=== PATIENT | male | born 1940 | race Caucasian/White ===

== ENCOUNTER 2020-06-15 10:13 | Inpatient (IN) ==
[2020-06-15] MEDS ORDERED: SODIUM CHLORIDE 0.9% 1,000 ML IV STA (10:32)
[2020-06-15] MEDS ORDERED: ONDANSETRON 4 MG/2 ML VIAL IV STA (10:34)
[2020-06-15 11:04] LABS: Basophils % 0.2 % (0.0-0.8); Hematocrit 45.8 VOL% (42.0-52.0); Hemoglobin 15.7 GM/DL (14.0-18.0); Immature Granulocytes % 0.3 %; Immature Granulocytes Absolute 0.03 #; Lymphocytes # 0.3 10*3/uL (1.4-4.0); Lymphocytes % 3.4 % (21.2-54.2); Mean Corpuscular HGB Conc 34.3 GM/DL (32-36); Mean Corpuscular Volume 92.2 FL (87-102); Mean Platelet Volume 10.5 FL (9.6-12.0); Neutrophils % 90.1 % (38.7-73.9); Platelet Count 136 T/CUMM (130-400); Red Blood Count 4.97 MC/CUMM (3.8-5.5)
[2020-06-15 11:23] LABS: Albumin 3.8 G/DL (3.4-5.0); Bilirubin,Total 0.5 MG/DL (0.2-1.0); Calcium 9.6 MG/DL (8.5-10.1); Osmolality,Calculated 271.2 MOS/KG (273-304); Total Protein 6.9 G/DL (6.4-8.3)
[2020-06-15 11:32] LABS: Band Neutrophils 3 % (0-10); Eosinophils 1 % (0-10); Lymphocytes 9 % (20-55); Segmented Neutrophils 81 % (50-85); Total Cells Counted 100
[2020-06-15 11:33] LABS: Platelet Estimate Adequate
[2020-06-15] MEDS ORDERED: HYDROmorphone 2 MG/1 ML VIAL IV ONE (12:28)
[2020-06-15] MEDS ORDERED: HYDROmorphone 2 MG/1 ML VIAL ONE (12:29)
[2020-06-15] MEDS ORDERED: ALBUTEROL/IPRATROPIUM 3 ML NEB RESP TX PRN (13:13)
[2020-06-15] MEDS ORDERED: KETOROLAC 15 MG/1 ML VIAL IV PRN (13:13)
[2020-06-15] MEDS ORDERED: ACETAMINOPHEN 325 MG TABLET PO PRN (13:13)
[2020-06-15] MEDS: ONDANSETRON 4 MG/2 ML VIAL IV PRN ×2 (16:29→22:34)
[2020-06-15] MEDS: LACTATED RINGERS 1,000 ML IV SCH (16:42)
[2020-06-15] MEDS: MORPHINE 4 MG/1 ML VIAL IV PRN ×2 (17:39→22:37)
[2020-06-16] MEDS: LACTATED RINGERS 1,000 ML IV SCH ×2 (01:45→09:24)
[2020-06-16 06:03] LABS: Basophils % 0.4 % (0.0-0.8); Eosinophils % 0.2 % (0.00-10.9); Hematocrit 53.7 VOL% (42.0-52.0); Immature Granulocytes % 0.2 %; Immature Granulocytes Absolute 0.01 #; Lymphocytes # 0.6 10*3/uL (1.4-4.0); Lymphocytes % 12.5 % (21.2-54.2); Mean Corpuscular HGB Conc 34.3 GM/DL (32-36); Mean Corpuscular Volume 92.1 FL (87-102); Mean Platelet Volume 11.4 FL (9.6-12.0); Monocytes % 14.4 % (1.7-12.7); Neutrophils % 72.3 % (38.7-73.9); Platelet Count 136 T/CUMM (130-400); Red Blood Count 5.83 MC/CUMM (3.8-5.5); Red Cell Distribution Width 14.2 % (9.3-17.3); White Blood Count 4.8 T/CUMM (4-12)
[2020-06-16 06:11] LABS: Hemoglobin 18.4 GM/DL (14.0-18.0)
[2020-06-16 06:24] LABS: Calcium 10.2 MG/DL (8.5-10.1); Osmolality,Calculated 279.8 MOS/KG (273-304)
[2020-06-16 06:34] LABS: Platelet Estimate Adequate
[2020-06-16] MEDS ORDERED: LACTATED RINGERS 1,000 ML IV ONE ×3 (06:53→12:30)
[2020-06-16] MEDS: ENOXAPARIN 40 MG/0.4 ML SYRINGE SUBCUT SCH (07:37)
[2020-06-16] MEDS: ONDANSETRON 4 MG/2 ML VIAL IV PRN ×2 (08:27→13:44)
[2020-06-16] MEDS: MORPHINE 4 MG/1 ML VIAL IV PRN ×2 (08:29→13:44)
[2020-06-16] MEDS: PANTOPRAZOLE 40 MG VIAL IV SCH (09:26)
[2020-06-16 15:09] LABS: Bilirubin,Urine Negative (Negative); Blood, Urine Negative (Negative); Glucose,Urine (UA) Negative (Negative); Ketones,Urine Negative (Negative); Mucus,Urine Occasional /LPF (Occasional); Nitrite,Urine Negative (Negative); Protein,Urine Negative; RBC,Urine 4 /HPF (0-4); Squamous Epithelial Cell,Urine Occasional /HPF (0-10); Urine Appearance CLEAR (Clear); Urine Color Amber (Yellow); Urine Specific Gravity 1.054 (1.001-1.035); Urine Urobilinogen < 2.0 EU/DL (0.2-1.0); WBC,Urine 3 /HPF (0-6)
[2020-06-17] MEDS: MORPHINE 4 MG/1 ML VIAL IV PRN ×3 (02:35→16:24)
[2020-06-17] MEDS: LACTATED RINGERS 1,000 ML IV SCH ×5 (03:35→23:41)
[2020-06-17] MEDS: ENOXAPARIN 40 MG/0.4 ML SYRINGE SUBCUT SCH (07:27)
[2020-06-17 08:16] LABS: Basophils % 0.5 % (0.0-0.8); Hematocrit 49.5 VOL% (42.0-52.0); Hemoglobin 17.4 GM/DL (14.0-18.0); Immature Granulocytes % 0.7 %; Immature Granulocytes Absolute 0.04 #; Lymphocytes # 0.5 10*3/uL (1.4-4.0); Lymphocytes % 8.3 % (21.2-54.2); Mean Corpuscular HGB Conc 35.2 GM/DL (32-36); Mean Corpuscular Volume 90.2 FL (87-102); Mean Platelet Volume 11.6 FL (9.6-12.0); Monocytes % 12.3 % (1.7-12.7); Neutrophils % 78.2 % (38.7-73.9); Platelet Count 118 T/CUMM (130-400); Red Blood Count 5.49 MC/CUMM (3.8-5.5); Red Cell Distribution Width 14.3 % (9.3-17.3); White Blood Count 6.1 T/CUMM (4-12)
[2020-06-17 08:40] LABS: Calcium 9.3 MG/DL (8.5-10.1)
[2020-06-17 09:06] LABS: Band Neutrophils 9 % (0-10); Hypochromasia 1+; Lymphocytes 14 % (20-55); Metamyelocytes 3 %; Microcytosis Slight; Myelocytes 3 %; Segmented Neutrophils 59 % (50-85); Total Cells Counted 100
[2020-06-17 09:07] LABS: Platelet Estimate Decreased
[2020-06-17] MEDS ORDERED: DEXTROSE 50% 25 GM/50 ML VIAL IV ONE (10:18)
[2020-06-17] MEDS: DEXTROSE 50% 25 GM/50 ML VIAL IV PRN ×2 (10:43→23:26)
[2020-06-17] MEDS ORDERED: cefOXitin 2,000 MG in SYRINGE 1 EACH IV ONE (11:17)
[2020-06-17] MEDS ORDERED: HEPARIN/NACL 0.9% 2 UNITS/ML 500 ML IV ONE ×2 (11:24→12:58)
[2020-06-17] MEDS ORDERED: LACTATED RINGERS 500 ML IV ONE (11:55)
[2020-06-17] MEDS: PANTOPRAZOLE 40 MG VIAL IV SCH (11:55)
[2020-06-17] MEDS ORDERED: DIGOXIN 0.5 MG/2 ML AMP IV ONE ×2 (12:00→18:00)
[2020-06-17] MEDS ORDERED: DILTIAZEM 25 MG/5 ML VIAL IV ONE (12:00)
[2020-06-17] MEDS ORDERED: PHENYLEPHRINE DRIP 40 MG/250 ML PREMIX IV ONE (12:56)
[2020-06-17] MEDS ORDERED: ALBUMIN 5% 12.5 GM/250 ML VIAL IV ONE (12:58)
[2020-06-17] MEDS ORDERED: EPINEPHrine 1 MG/10 ML SYRINGE ONE (12:58)
[2020-06-17] MEDS ORDERED: PHENYLEPHRINE DRIP 20 MG/250 ML PREMIX IV ONE (12:58)
[2020-06-17] MEDS ORDERED: LIDOCAINE 2% 5 ML VIAL ONE (12:58)
[2020-06-17] MEDS ORDERED: propofoL 200 MG/20 ML VIAL IV ONE (12:58)
[2020-06-17] MEDS ORDERED: fentaNYL 100 MCG/2 ML VIAL ONE (12:59)
[2020-06-17] MEDS ORDERED: MIDAZOLAM 2 MG/2 ML VIAL ONE (12:59)
[2020-06-17] MEDS ORDERED: NOREPINEPHRINE 4 MG/4 ML VIAL IV ONE ×2 (12:59→14:36)
[2020-06-17] MEDS ORDERED: EPINEPHrine 1 MG/ML VIAL ONE (12:59)
[2020-06-17] MEDS ORDERED: ETOMIDATE 40 MG/20 ML VIAL IV ONE (12:59)
[2020-06-17] MEDS ORDERED: SODIUM CHLORIDE 0.9% 250 ML IV ONE (13:00)
[2020-06-17] MEDS ORDERED: PHENYLEPHRINE 1 MG/10 ML SYRINGE IV ONE (13:00)
[2020-06-17] MEDS ORDERED: SUCCINYLCHOLINE 200 MG/10 ML VIAL ONE (13:00)
[2020-06-17] MEDS ORDERED: HYDROmorphone 2 MG/1 ML VIAL IV PRN (13:02)
[2020-06-17] MEDS ORDERED: SODIUM CHLORIDE 0.9% 1,000 ML IV ONE ×2 (13:26→15:45)
[2020-06-17 13:27] LABS: Basophils # 0.1 10*3/uL (0.0-0.2); Basophils % 1.4 % (0.0-0.8); Hematocrit 43.2 VOL% (42.0-52.0); Hemoglobin 14.9 GM/DL (14.0-18.0); Immature Granulocytes % 0.2 %; Immature Granulocytes Absolute 0.01 #; Lymphocytes # 0.4 10*3/uL (1.4-4.0); Lymphocytes % 8.5 % (21.2-54.2); Mean Corpuscular HGB Conc 34.5 GM/DL (32-36); Mean Corpuscular Volume 91.5 FL (87-102); Mean Platelet Volume 11.5 FL (9.6-12.0); Monocytes % 5.7 % (1.7-12.7); Neutrophils % 84.2 % (38.7-73.9); Platelet Count 89 T/CUMM (130-400); Red Blood Count 4.72 MC/CUMM (3.8-5.5); Red Cell Distribution Width 14.3 % (9.3-17.3)
[2020-06-17 13:30] LABS: ABG Base Excess 5.4 MMOL/L (-2.5-2.5); ABG HCO3 29.3 MMOL/L (20-26); ABG Oxygen Saturation 99.9 % (95-100); ABG PCO2 53.2 MM HG (35-48); ABG PH 7.389 (7.35-7.45); ABG TCO2 27.2 MMOL/L (23-27)
[2020-06-17] MEDS ORDERED: GLUCAGON 1 MG VIAL IM PRN (13:30)
[2020-06-17 13:40] LABS: Calcium 8.1 MG/DL (8.5-10.1); Osmolality,Calculated 289.7 MOS/KG (273-304)
[2020-06-17] MEDS ORDERED: MAGNESIUM SULF RIDER 2 GM in PREMIX 1 EACH IV PRN (14:01)
[2020-06-17] MEDS: PIPERACILLIN/TAZOBACTAM 3,375 MG in SODIUM CHLORIDE 0.9% 100 ML IV SCH (14:24)
[2020-06-17] MEDS: PHENYLEPHRINE DRIP 40 MG/250 ML PREMIX IV PRN ×2 (14:32→20:21)
[2020-06-17] MEDS: MIDAZOLAM 100 MG in SODIUM CHLORIDE 0.9% 80 ML IV PRN (15:02)
[2020-06-17 15:11] LABS: Band Neutrophils 27 % (0-10); Lymphocytes 13 % (20-55); Metamyelocytes 1 %; Myelocytes 2 %; Segmented Neutrophils 52 % (50-85); Total Cells Counted 100
[2020-06-17 15:14] LABS: Platelet Estimate Decreased
[2020-06-17] MEDS: ALBUMIN 25% 25 GM in PREMIX 1 EACH IV SCH ×2 (15:42→23:33)
[2020-06-17 16:32] LABS: Alanine Aminotransferase 16 U/L (16-61); Albumin 2.7 G/DL (3.4-5.0); Alkaline Phosphatase 51 U/L (45-117); Aspartate Amino Transferase 24 U/L (0-37); Blood Urea Nitrogen 56 MG/DL (7-18); Calcium 7.9 MG/DL (8.5-10.1); Estimated Glom Filtration Rate 20 ML/MIN; Glucose 87 MG/DL (74-106); Osmolality,Calculated 295.3 MOS/KG (273-304); Total Protein 5.2 G/DL (6.4-8.3)
[2020-06-17] MEDS: INSULIN REGULAR 100 UNIT/ML SUBCUT SCH ×2 (17:27→23:37)
[2020-06-17] MEDS ORDERED: LORazepam 2 MG/1 ML VIAL IV ONE (19:29)
[2020-06-17] MEDS: METOPROLOL TARTRATE 5 MG/5 ML VIAL IV SCH ×3 (20:01→21:06)
[2020-06-17] MEDS ORDERED: METOPROLOL TARTRATE 5 MG/5 ML VIAL IV ONE ×2 (20:56→22:44)
[2020-06-18] MEDS ORDERED: DIGOXIN 0.5 MG/2 ML AMP IV ONE
[2020-06-18] MEDS: PHENYLEPHRINE DRIP 40 MG/250 ML PREMIX IV PRN ×2 (00:53→07:17)
[2020-06-18] MEDS: PIPERACILLIN/TAZOBACTAM 3,375 MG in SODIUM CHLORIDE 0.9% 100 ML IV SCH ×2 (03:19→14:00)
[2020-06-18 04:19] LABS: ABG Base Excess 4.7 MMOL/L (-2.5-2.5); ABG HCO3 28.7 MMOL/L (20-26); ABG Oxygen Saturation 99.5 % (95-100); ABG PCO2 41.6 MM HG (35-48); ABG PH 7.453 (7.35-7.45); ABG TCO2 25.5 MMOL/L (23-27)
[2020-06-18 04:37] LABS: Basophils % 0.6 % (0.0-0.8); Eosinophils % 0.3 % (0.00-10.9); Hematocrit 35.8 VOL% (42.0-52.0); Hemoglobin 12.4 GM/DL (14.0-18.0); Immature Granulocytes % 0.8 %; Immature Granulocytes Absolute 0.05 #; Lymphocytes # 0.4 10*3/uL (1.4-4.0); Lymphocytes % 6.7 % (21.2-54.2); Mean Corpuscular HGB Conc 34.6 GM/DL (32-36); Mean Corpuscular Volume 91.3 FL (87-102); Monocytes % 7.1 % (1.7-12.7); Neutrophils % 84.5 % (38.7-73.9); Platelet Count 73 T/CUMM (130-400); Red Blood Count 3.92 MC/CUMM (3.8-5.5); Red Cell Distribution Width 14.4 % (9.3-17.3); White Blood Count 6.3 T/CUMM (4-12)
[2020-06-18 04:41] LABS: Albumin 2.9 G/DL (3.4-5.0); Bilirubin,Total 1.7 MG/DL (0.2-1.0); Calcium 7.8 MG/DL (8.5-10.1); Osmolality,Calculated 293.1 MOS/KG (273-304); Total Protein 5.1 G/DL (6.4-8.3)
[2020-06-18] MEDS: DEXTROSE 50% 25 GM/50 ML VIAL IV PRN (05:25)
[2020-06-18 06:27] LABS: Band Neutrophils 10 % (0-10); Lymphocytes 7 % (20-55); Platelet Estimate Decreased; Segmented Neutrophils 75 % (50-85); Total Cells Counted 100
[2020-06-18] MEDS: LACTATED RINGERS 1,000 ML IV SCH ×2 (07:02→07:50)
[2020-06-18] MEDS: INSULIN REGULAR 100 UNIT/ML SUBCUT SCH ×4 (07:02→23:36)
[2020-06-18] MEDS ORDERED: POTASSIUM CHLORIDE RIDER 10 MEQ in PREMIX 1 EACH IV PRN (08:08)
[2020-06-18] MEDS ORDERED: ENOXAPARIN 30 MG/0.3 ML SYRINGE SUBCUT SCH (09:00)
[2020-06-18] MEDS ORDERED: ALBUMIN 25% 25 GM in PREMIX 1 EACH IV SCH (09:00)
[2020-06-18] MEDS: ALBUMIN 25% 25 GM in PREMIX 1 EACH IV SCH (09:14)
[2020-06-18] MEDS: PANTOPRAZOLE 40 MG VIAL IV SCH (09:18)
[2020-06-18] MEDS: NICOTINE 21 MG/24 HR PATCH TRANSDERM SCH (09:18)
[2020-06-18] MEDS: POTASSIUM CHLORIDE RIDER 20 MEQ in PREMIX 1 EACH IV PRN (09:34)
[2020-06-18] MEDS: MORPHINE 4 MG/1 ML VIAL IV PRN (10:25)
[2020-06-18] MEDS: DEXT 5% NACL 0.45% KCL 20 MEQ 20 MEQ/1,000 ML BAG IV SCH ×2 (11:34→20:49)
[2020-06-18] MEDS: LORazepam 2 MG/1 ML VIAL IV PRN (15:57)
[2020-06-18] MEDS ORDERED: SODIUM CHLORIDE 0.45% 1,000 ML IV ONE (16:10)
[2020-06-19] MEDS: MORPHINE 4 MG/1 ML VIAL IV PRN (00:23)
[2020-06-19] MEDS: PIPERACILLIN/TAZOBACTAM 3,375 MG in SODIUM CHLORIDE 0.9% 100 ML IV SCH ×2 (01:38→16:42)
[2020-06-19] MEDS: fentaNYL INJ 1,250 MCG in SODIUM CHLORIDE 0.9% 225 ML IV PRN (01:41)
[2020-06-19 03:48] LABS: ABG Base Excess 4.4 MMOL/L (-2.5-2.5); ABG HCO3 28.3 MMOL/L (20-26); ABG Oxygen Saturation 98.2 % (95-100); ABG PCO2 45.9 MM HG (35-48); ABG PH 7.416 (7.35-7.45); ABG TCO2 26.9 MMOL/L (23-27)
[2020-06-19] MEDS: DEXT 5% NACL 0.45% KCL 20 MEQ 20 MEQ/1,000 ML BAG IV SCH ×4 (04:04→22:12)
[2020-06-19 04:12] LABS: Basophils % 0.5 % (0.0-0.8); Eosinophils % 0.3 % (0.00-10.9); Hematocrit 29.6 VOL% (42.0-52.0); Hemoglobin 10.1 GM/DL (14.0-18.0); Immature Granulocytes % 0.9 %; Immature Granulocytes Absolute 0.05 #; Lymphocytes # 0.3 10*3/uL (1.4-4.0); Lymphocytes % 5.9 % (21.2-54.2); Mean Corpuscular HGB Conc 34.1 GM/DL (32-36); Mean Corpuscular Volume 93.1 FL (87-102); Mean Platelet Volume 12.1 FL (9.6-12.0); Monocytes % 7.7 % (1.7-12.7); Neutrophils % 84.7 % (38.7-73.9); Platelet Count 44 T/CUMM (130-400); Red Blood Count 3.18 MC/CUMM (3.8-5.5); Red Cell Distribution Width 14.3 % (9.3-17.3); White Blood Count 5.7 T/CUMM (4-12)
[2020-06-19 04:20] LABS: Calcium 7.3 MG/DL (8.5-10.1)
[2020-06-19 04:33] LABS: Osmolality,Calculated 283.5 MOS/KG (273-304)
[2020-06-19] MEDS: POTASSIUM CHLORIDE RIDER 20 MEQ in PREMIX 1 EACH IV PRN (04:44)
[2020-06-19] MEDS: INSULIN REGULAR 100 UNIT/ML SUBCUT SCH ×3 (05:04→18:15)
[2020-06-19 06:48] LABS: Lymphocytes 7 % (20-55); Segmented Neutrophils 88 % (50-85)
[2020-06-19 06:52] LABS: Microcytosis Slight; Platelet Estimate Decreased
[2020-06-19 06:57] LABS: Total Cells Counted 100
[2020-06-19] MEDS: PANTOPRAZOLE 40 MG VIAL IV SCH (09:35)
[2020-06-19] MEDS: NICOTINE 21 MG/24 HR PATCH TRANSDERM SCH (09:35)
[2020-06-19] MEDS ORDERED: SODIUM CHLORIDE 0.9% 1,000 ML IV PRN (11:13)
[2020-06-19] MEDS: FAMOTIDINE 20 MG/2 ML VIAL IV SCH (12:00)
[2020-06-19] MEDS: DEXMEDETOMIDINE 200 MCG in SODIUM CHLORIDE 0.9% 48 ML IV PRN (12:01)
[2020-06-19] MEDS ORDERED: TRACE ELEMENTS (5) 1 ML, MULTIVITAMIN INJ 10 ML in AMINO ACIDS/DEXT/LYTES 5-15% 2,000 ML IV SCH (17:00)
[2020-06-20] MEDS: INSULIN REGULAR 100 UNIT/ML SUBCUT SCH ×4 (01:21→18:29)
[2020-06-20] MEDS: PIPERACILLIN/TAZOBACTAM 3,375 MG in SODIUM CHLORIDE 0.9% 100 ML IV SCH (05:01)
[2020-06-20 05:05] LABS: ABG Base Excess 2.3 MMOL/L (-2.5-2.5); ABG HCO3 26.5 MMOL/L (20-26); ABG Oxygen Saturation 97.2 % (95-100); ABG PCO2 46.5 MM HG (35-48); ABG PH 7.386 (7.35-7.45); ABG PO2 90.9 MM HG (80-95); ABG TCO2 25.2 MMOL/L (23-27)
[2020-06-20 05:07] LABS: Basophils % 0.1 % (0.0-0.8); Eosinophils # 0.1 10*3/uL (0.0-0.87); Eosinophils % 0.9 % (0.00-10.9); Hematocrit 30.8 VOL% (42.0-52.0); Hemoglobin 10.4 GM/DL (14.0-18.0); Immature Granulocytes % 0.3 %; Immature Granulocytes Absolute 0.02 #; Lymphocytes # 0.6 10*3/uL (1.4-4.0); Lymphocytes % 8.7 % (21.2-54.2); Mean Corpuscular HGB Conc 33.8 GM/DL (32-36); Mean Corpuscular Volume 94.2 FL (87-102); Mean Platelet Volume 11.7 FL (9.6-12.0); Red Blood Count 3.27 MC/CUMM (3.8-5.5); Red Cell Distribution Width 14.6 % (9.3-17.3); White Blood Count 6.8 T/CUMM (4-12)
[2020-06-20 05:09] LABS: Platelet Count 68 T/CUMM (130-400)
[2020-06-20 05:25] LABS: Lymphocytes 9 % (20-55)
[2020-06-20 05:27] LABS: Band Neutrophils 8 % (0-10); Eosinophils 1 % (0-10); Nucleated Red Blood Cells 0 (0-5); Platelet Estimate Decreased; Segmented Neutrophils 79 % (50-85); Total Cells Counted 100
[2020-06-20 05:28] LABS: Calcium 7.5 MG/DL (8.5-10.1); Osmolality,Calculated 283.4 MOS/KG (273-304)
[2020-06-20] MEDS: DEXT 5% NACL 0.45% KCL 20 MEQ 20 MEQ/1,000 ML BAG IV SCH ×4 (06:50→23:46)
[2020-06-20] MEDS: PHENYLEPHRINE DRIP 40 MG/250 ML PREMIX IV PRN (07:01)
[2020-06-20] MEDS: NICOTINE 21 MG/24 HR PATCH TRANSDERM SCH (09:40)
[2020-06-20] MEDS: FAMOTIDINE 20 MG/2 ML VIAL IV SCH (11:39)
[2020-06-20] MEDS: MEROPENEM 500 MG in SODIUM CHLORIDE 0.9% 100 ML IV SCH ×3 (11:59→23:43)
[2020-06-20] MEDS ORDERED: ROCURONIUM 100 MG/10 ML VIAL IV ONE (13:49)
[2020-06-20] MEDS ORDERED: SEVOFLURANE 1 UNIT/15 MINUTE INH ONE (13:49)
[2020-06-20] MEDS ORDERED: fentaNYL 100 MCG/2 ML VIAL ONE (13:49)
[2020-06-20] MEDS ORDERED: LACTATED RINGERS 500 ML IV ONE (13:49)
[2020-06-20] MEDS ORDERED: MIDAZOLAM 10 MG/2 ML VIAL ONE (13:49)
[2020-06-20] MEDS ORDERED: DIGOXIN 0.5 MG/2 ML AMP IV ONE ×2 (15:21→16:30)
[2020-06-20] MEDS ORDERED: SODIUM CHLORIDE 0.9% 1,000 ML IV ONE (15:50)
[2020-06-20] MEDS ORDERED: DEXTROSE 10% 1,000 ML IV PRN (17:00)
[2020-06-20] MEDS ORDERED: TRACE ELEMENTS (5) 1 ML, MULTIVITAMIN INJ 10 ML in AMINO ACIDS/DEXT/LYTES 5-15% 2,000 ML IV SCH (17:00)
[2020-06-20] MEDS: fentaNYL INJ 1,250 MCG in SODIUM CHLORIDE 0.9% 225 ML IV PRN (20:00)
[2020-06-21] MEDS: INSULIN REGULAR 100 UNIT/ML SUBCUT SCH ×4 (00:04→17:51)
[2020-06-21] MEDS: MIDAZOLAM 100 MG in SODIUM CHLORIDE 0.9% 80 ML IV PRN (01:35)
[2020-06-21 04:28] LABS: ABG Base Excess 0.5 MMOL/L (-2.5-2.5); ABG HCO3 24.9 MMOL/L (20-26); ABG Oxygen Saturation 98.7 % (95-100); ABG PCO2 40.9 MM HG (35-48); ABG PH 7.399 (7.35-7.45); ABG TCO2 22.8 MMOL/L (23-27)
[2020-06-21 04:52] LABS: Basophils % 0.5 % (0.0-0.8); Eosinophils % 0.3 % (0.00-10.9); Hematocrit 33.1 VOL% (42.0-52.0); Hemoglobin 10.9 GM/DL (14.0-18.0); Immature Granulocytes % 0.6 %; Immature Granulocytes Absolute 0.04 #; Lymphocytes # 0.4 10*3/uL (1.4-4.0); Lymphocytes % 6.6 % (21.2-54.2); Mean Corpuscular HGB Conc 32.9 GM/DL (32-36); Mean Corpuscular Volume 94.3 FL (87-102); Monocytes % 6.6 % (1.7-12.7); Neutrophils % 85.4 % (38.7-73.9); Red Blood Count 3.51 MC/CUMM (3.8-5.5); Red Cell Distribution Width 14.6 % (9.3-17.3); White Blood Count 6.7 T/CUMM (4-12)
[2020-06-21 04:57] LABS: Platelet Count 32 T/CUMM (130-400)
[2020-06-21 05:03] LABS: Calcium 7.1 MG/DL (8.5-10.1); Osmolality,Calculated 278.7 MOS/KG (273-304)
[2020-06-21 05:16] LABS: Band Neutrophils 9 % (0-10); Lymphocytes 7 % (20-55); Platelet Estimate Decreased; Segmented Neutrophils 76 % (50-85); Total Cells Counted 100
[2020-06-21] MEDS: MEROPENEM 500 MG in SODIUM CHLORIDE 0.9% 100 ML IV SCH ×4 (05:42→23:53)
[2020-06-21] MEDS: DEXT 5% NACL 0.45% KCL 20 MEQ 20 MEQ/1,000 ML BAG IV SCH ×2 (07:37→09:18)
[2020-06-21] MEDS: FAMOTIDINE 20 MG/2 ML VIAL IV SCH (10:33)
[2020-06-21] MEDS: NICOTINE 21 MG/24 HR PATCH TRANSDERM SCH (10:33)
[2020-06-21] MEDS ORDERED: FAT EMULSION 20% 250 ML IV SCH (14:00)
[2020-06-21] MEDS ORDERED: SODIUM PHOSPHATE INJ 30 MMOL in SODIUM CHLORIDE 0.9% 250 ML IV ONE (15:00)
[2020-06-21] MEDS ORDERED: MULTIVITAMIN INJ 10 ML in AMINO ACIDS/DEXT/LYTES 5-15% 2,000 ML IV SCH (17:00)
[2020-06-21] MEDS: fentaNYL 25 MCG/HR PATCH TRANSDERM SCH (17:51)
[2020-06-22] MEDS: INSULIN REGULAR 100 UNIT/ML SUBCUT SCH ×4 (00:10→17:13)
[2020-06-22 04:43] LABS: ABG Base Excess 2.7 MMOL/L (-2.5-2.5); ABG HCO3 26.8 MMOL/L (20-26); ABG PCO2 44.5 MM HG (35-48); ABG PH 7.404 (7.35-7.45); ABG TCO2 25.2 MMOL/L (23-27)
[2020-06-22 04:48] LABS: Basophils % 0.2 % (0.0-0.8); Eosinophils % 0.2 % (0.00-10.9); Hemoglobin 10.1 GM/DL (14.0-18.0); Lymphocytes # 0.7 10*3/uL (1.4-4.0); Mean Corpuscular HGB Conc 33.7 GM/DL (32-36); Mean Corpuscular Volume 93.8 FL (87-102); Mean Platelet Volume 12.4 FL (9.6-12.0); Monocytes % 6.7 % (1.7-12.7); Neutrophils % 84.9 % (38.7-73.9); Red Cell Distribution Width 14.7 % (9.3-17.3)
[2020-06-22 04:54] LABS: Platelet Count 34 T/CUMM (130-400)
[2020-06-22 05:08] LABS: Band Neutrophils 2 % (0-10); Hypochromasia 1+; Lymphocytes 3 % (20-55); Platelet Estimate Decreased; Segmented Neutrophils 90 % (50-85); Total Cells Counted 100
[2020-06-22 05:27] LABS: Calcium 7.5 MG/DL (8.5-10.1); Osmolality,Calculated 282.4 MOS/KG (273-304)
[2020-06-22] MEDS: MEROPENEM 500 MG in SODIUM CHLORIDE 0.9% 100 ML IV SCH (05:55)
[2020-06-22] MEDS: NICOTINE 21 MG/24 HR PATCH TRANSDERM SCH (08:53)
[2020-06-22] MEDS: MORPHINE 4 MG/1 ML VIAL IV PRN ×3 (08:55→16:25)
[2020-06-22] MEDS: DEXMEDETOMIDINE 200 MCG in SODIUM CHLORIDE 0.9% 48 ML IV PRN (09:42)
[2020-06-22] MEDS: FAMOTIDINE 20 MG/2 ML VIAL IV SCH (11:44)
[2020-06-23] MEDS: INSULIN REGULAR 100 UNIT/ML SUBCUT SCH ×4 (01:02→18:10)
[2020-06-23] MEDS: MIDAZOLAM 100 MG in SODIUM CHLORIDE 0.9% 80 ML IV PRN ×2 (02:22→19:06)
[2020-06-23 04:25] LABS: ABG Base Excess 3.4 MMOL/L (-2.5-2.5); ABG HCO3 27.2 MMOL/L (20-26); ABG Oxygen Saturation 98.3 % (95-100); ABG PH 7.472 (7.35-7.45); ABG PO2 125.9 MM HG (80-95); ABG TCO2 28.3 MMOL/L (23-27); Allen Test Positive; Pt O2 Delivery Device Ventilator
[2020-06-23 04:38] LABS: Basophils % 0.1 % (0.0-0.8); Eosinophils % 0.4 % (0.00-10.9); Hemoglobin 9.3 GM/DL (14.0-18.0); Immature Granulocytes % 1.2 %; Immature Granulocytes Absolute 0.09 #; Lymphocytes # 0.5 10*3/uL (1.4-4.0); Lymphocytes % 6.5 % (21.2-54.2); Mean Corpuscular HGB Conc 34.4 GM/DL (32-36); Mean Corpuscular Volume 92.5 FL (87-102); Mean Platelet Volume 13.1 FL (9.6-12.0); Monocytes % 6.1 % (1.7-12.7); Neutrophils % 85.7 % (38.7-73.9); Platelet Count 43 T/CUMM (130-400); Red Blood Count 2.92 MC/CUMM (3.8-5.5); Red Cell Distribution Width 14.6 % (9.3-17.3); White Blood Count 7.8 T/CUMM (4-12)
[2020-06-23 04:58] LABS: Calcium 7.4 MG/DL (8.5-10.1); Osmolality,Calculated 283.4 MOS/KG (273-304)
[2020-06-23 05:03] LABS: Eosinophils 1 % (0-10); Hypochromasia 1+; Lymphocytes 3 % (20-55); Platelet Estimate Decreased; Segmented Neutrophils 93 % (50-85); Total Cells Counted 100
[2020-06-23] MEDS ORDERED: PHENYLEPHRINE DRIP 40 MG/250 ML PREMIX IV PRN (08:12)
[2020-06-23] MEDS: LORazepam 2 MG/1 ML VIAL IV PRN (08:15)
[2020-06-23] MEDS ORDERED: MORPHINE 4 MG/1 ML VIAL ONE (08:58)
[2020-06-23] MEDS: methylPREDNISolone SOD SUC 40 MG/1 ML VIAL IV SCH ×2 (09:36→18:10)
[2020-06-23] MEDS: NICOTINE 21 MG/24 HR PATCH TRANSDERM SCH (09:37)
[2020-06-23] MEDS: MORPHINE 4 MG/1 ML VIAL IV PRN ×2 (10:20→16:25)
[2020-06-23] MEDS: ALBUTEROL/IPRATROPIUM 3 ML NEB RESP TX SCH ×4 (10:57→23:42)
[2020-06-23] MEDS ORDERED: MORPHINE 4 MG/1 ML VIAL IV PRN (12:20)
[2020-06-23] MEDS: FAMOTIDINE 20 MG/2 ML VIAL IV SCH (12:25)
[2020-06-23] MEDS: DEXMEDETOMIDINE 200 MCG in SODIUM CHLORIDE 0.9% 48 ML IV PRN (16:12)
[2020-06-24] MEDS: INSULIN REGULAR 100 UNIT/ML SUBCUT SCH ×4 (01:40→18:35)
[2020-06-24] MEDS: ALBUTEROL/IPRATROPIUM 3 ML NEB RESP TX SCH ×6 (03:06→23:48)
[2020-06-24] MEDS: methylPREDNISolone SOD SUC 40 MG/1 ML VIAL IV SCH ×3 (03:17→18:35)
[2020-06-24 04:09] LABS: Basophils % 0.2 % (0.0-0.8); Hematocrit 30.7 VOL% (42.0-52.0); Hemoglobin 10.7 GM/DL (14.0-18.0); Immature Granulocytes % 0.8 %; Immature Granulocytes Absolute 0.07 #; Lymphocytes # 0.6 10*3/uL (1.4-4.0); Lymphocytes % 6.5 % (21.2-54.2); Mean Corpuscular HGB Conc 34.9 GM/DL (32-36); Mean Corpuscular Volume 91.1 FL (87-102); Mean Platelet Volume 13.6 FL (9.6-12.0); Monocytes % 4.5 % (1.7-12.7); Platelet Count 70 T/CUMM (130-400); Red Blood Count 3.37 MC/CUMM (3.8-5.5); Red Cell Distribution Width 14.6 % (9.3-17.3); White Blood Count 8.9 T/CUMM (4-12)
[2020-06-24 04:24] LABS: Calcium 7.6 MG/DL (8.5-10.1); Osmolality,Calculated 286.5 MOS/KG (273-304)
[2020-06-24 04:32] LABS: Allen Test Positive; Pt O2 Delivery Device Ventilator
[2020-06-24 04:33] LABS: ABG Base Excess 3.6 MMOL/L (-2.5-2.5); ABG HCO3 27.6 MMOL/L (20-26); ABG Oxygen Saturation 98.3 % (95-100); ABG PCO2 38.8 MM HG (35-48); ABG TCO2 24.7 MMOL/L (23-27)
[2020-06-24 04:46] LABS: Band Neutrophils 1 % (0-10); Hypochromasia 1+; Lymphocytes 4 % (20-55); Platelet Estimate Decreased; Segmented Neutrophils 91 % (50-85); Total Cells Counted 100
[2020-06-24] MEDS: NICOTINE 21 MG/24 HR PATCH TRANSDERM SCH (09:22)
[2020-06-24] MEDS: fentaNYL 25 MCG/HR PATCH TRANSDERM SCH (09:23)
[2020-06-24] MEDS ORDERED: ENOXAPARIN 40 MG/0.4 ML SYRINGE SUBCUT SCH (09:30)
[2020-06-24] MEDS: ENOXAPARIN 30 MG/0.3 ML SYRINGE SUBCUT SCH (10:04)
[2020-06-24] MEDS: FAMOTIDINE 20 MG/2 ML VIAL IV SCH (13:03)
[2020-06-24] MEDS: hydrALAZINE 20 MG/1 ML VIAL IV PRN (14:00)
[2020-06-24] MEDS: DEXMEDETOMIDINE 200 MCG in SODIUM CHLORIDE 0.9% 48 ML IV PRN (17:23)
[2020-06-25] MEDS: INSULIN REGULAR 100 UNIT/ML SUBCUT SCH ×4 (00:38→18:31)
[2020-06-25] MEDS: methylPREDNISolone SOD SUC 40 MG/1 ML VIAL IV SCH ×3 (01:13→18:31)
[2020-06-25] MEDS: ALBUTEROL/IPRATROPIUM 3 ML NEB RESP TX SCH ×5 (02:33→19:33)
[2020-06-25 03:25] LABS: ABG Base Excess 3.9 MMOL/L (-2.5-2.5); ABG Oxygen Saturation 99.2 % (95-100); ABG PCO2 40.9 MM HG (35-48); ABG PH 7.447 (7.35-7.45); ABG TCO2 25.9 MMOL/L (23-27); Allen Test Positive; Pt O2 Delivery Device Ventilator
[2020-06-25] MEDS ORDERED: LORazepam 2 MG/1 ML VIAL ONE (04:28)
[2020-06-25] MEDS: LORazepam 2 MG/1 ML VIAL IV PRN (04:32)
[2020-06-25 04:51] LABS: Basophils % 0.1 % (0.0-0.8); Hematocrit 28.1 VOL% (42.0-52.0); Hemoglobin 9.7 GM/DL (14.0-18.0); Immature Granulocytes % 0.6 %; Immature Granulocytes Absolute 0.06 #; Lymphocytes # 0.4 10*3/uL (1.4-4.0); Lymphocytes % 3.6 % (21.2-54.2); Mean Corpuscular HGB Conc 34.5 GM/DL (32-36); Mean Corpuscular Volume 91.5 FL (87-102); Mean Platelet Volume 12.7 FL (9.6-12.0); Monocytes % 4.9 % (1.7-12.7); Neutrophils % 90.8 % (38.7-73.9); Red Blood Count 3.07 MC/CUMM (3.8-5.5); Red Cell Distribution Width 14.6 % (9.3-17.3); White Blood Count 9.9 T/CUMM (4-12)
[2020-06-25 05:02] LABS: Platelet Count 98 T/CUMM (130-400)
[2020-06-25 05:12] LABS: Calcium 7.7 MG/DL (8.5-10.1); Osmolality,Calculated 289.5 MOS/KG (273-304)
[2020-06-25 05:29] LABS: Band Neutrophils 9 % (0-10); Lymphocytes 4 % (20-55); Segmented Neutrophils 83 % (50-85); Total Cells Counted 100
[2020-06-25 05:30] LABS: Hypochromasia 1+; Microcytosis 1+; Platelet Estimate Decreased
[2020-06-25] MEDS: MIDAZOLAM 100 MG in SODIUM CHLORIDE 0.9% 80 ML IV PRN (06:41)
[2020-06-25] MEDS: NICOTINE 21 MG/24 HR PATCH TRANSDERM SCH (08:37)
[2020-06-25] MEDS: ENOXAPARIN 30 MG/0.3 ML SYRINGE SUBCUT SCH (09:44)
[2020-06-25] MEDS: MORPHINE 4 MG/1 ML VIAL IV PRN (11:18)
[2020-06-25] MEDS: FAMOTIDINE 20 MG/2 ML VIAL IV SCH (11:20)
[2020-06-25] MEDS: DEXMEDETOMIDINE 200 MCG in SODIUM CHLORIDE 0.9% 48 ML IV PRN (19:00)
[2020-06-26] MEDS: ALBUTEROL/IPRATROPIUM 3 ML NEB RESP TX SCH ×7 (00:07→23:46)
[2020-06-26] MEDS: INSULIN REGULAR 100 UNIT/ML SUBCUT SCH ×4 (03:06→18:24)
[2020-06-26 03:10] LABS: ABG Base Excess 5.6 MMOL/L (-2.5-2.5); ABG HCO3 29.5 MMOL/L (20-26); ABG Oxygen Saturation 98.6 % (95-100); ABG PCO2 40.5 MM HG (35-48); ABG PH 7.473 (7.35-7.45); Allen Test Positive; Pt O2 Delivery Device Ventilator
[2020-06-26] MEDS: methylPREDNISolone SOD SUC 40 MG/1 ML VIAL IV SCH ×3 (03:12→18:24)
[2020-06-26] MEDS: MIDAZOLAM 100 MG in SODIUM CHLORIDE 0.9% 80 ML IV PRN (05:16)
[2020-06-26 05:27] LABS: Albumin 1.7 G/DL (3.4-5.0); Bilirubin,Total 1.6 MG/DL (0.2-1.0); Calcium 7.8 MG/DL (8.5-10.1); Osmolality,Calculated 282.5 MOS/KG (273-304); Total Protein 4.9 G/DL (6.4-8.3)
[2020-06-26] MEDS ORDERED: PIPERACILLIN/TAZOBACTAM 3,375 MG in SODIUM CHLORIDE 0.9% 100 ML IV SCH (07:00)
[2020-06-26] MEDS: MEROPENEM 500 MG in SODIUM CHLORIDE 0.9% 100 ML IV SCH ×3 (08:51→21:07)
[2020-06-26] MEDS: NICOTINE 21 MG/24 HR PATCH TRANSDERM SCH (08:51)
[2020-06-26] MEDS: DEXMEDETOMIDINE 200 MCG in SODIUM CHLORIDE 0.9% 48 ML IV PRN ×3 (09:30→23:15)
[2020-06-26] MEDS: ENOXAPARIN 30 MG/0.3 ML SYRINGE SUBCUT SCH (09:32)
[2020-06-26] MEDS: GENTAMICIN INJ 440 MG in SODIUM CHLORIDE 0.9% 100 ML IV SCH (10:32)
[2020-06-26] MEDS: FAMOTIDINE 20 MG/2 ML VIAL IV SCH (11:24)
[2020-06-27] MEDS: methylPREDNISolone SOD SUC 40 MG/1 ML VIAL IV SCH ×3 (00:40→17:30)
[2020-06-27] MEDS: INSULIN REGULAR 100 UNIT/ML SUBCUT SCH ×5 (00:40→23:20)
[2020-06-27] MEDS: ALBUTEROL/IPRATROPIUM 3 ML NEB RESP TX SCH ×5 (02:00→19:15)
[2020-06-27] MEDS: MEROPENEM 500 MG in SODIUM CHLORIDE 0.9% 100 ML IV SCH ×4 (02:45→20:35)
[2020-06-27 03:39] LABS: ABG Base Excess 5.6 MMOL/L (-2.5-2.5); ABG HCO3 29.5 MMOL/L (20-26); ABG Oxygen Saturation 98.7 % (95-100); ABG PCO2 40.6 MM HG (35-48); ABG PH 7.472 (7.35-7.45); ABG TCO2 27.3 MMOL/L (23-27)
[2020-06-27 04:59] LABS: Basophils % 0.1 % (0.0-0.8); Hematocrit 26.7 VOL% (42.0-52.0); Hemoglobin 9.1 GM/DL (14.0-18.0); Immature Granulocytes % 0.9 %; Lymphocytes # 0.4 10*3/uL (1.4-4.0); Lymphocytes % 3.8 % (21.2-54.2); Mean Corpuscular HGB Conc 34.1 GM/DL (32-36); Mean Corpuscular Volume 92.1 FL (87-102); Mean Platelet Volume 12.2 FL (9.6-12.0); Monocytes % 3.7 % (1.7-12.7); Neutrophils % 91.5 % (38.7-73.9); Platelet Count 129 T/CUMM (130-400); Red Cell Distribution Width 14.5 % (9.3-17.3); White Blood Count 11.7 T/CUMM (4-12)
[2020-06-27 05:24] LABS: Band Neutrophils 2 % (0-10); Lymphocytes 6 % (20-55); Segmented Neutrophils 91 % (50-85); Total Cells Counted 100
[2020-06-27 05:25] LABS: Hypochromasia 1+; Microcytosis 1+; Platelet Estimate Normal
[2020-06-27 05:35] LABS: Albumin 1.6 G/DL (3.4-5.0); Bilirubin,Total 1.8 MG/DL (0.2-1.0); Calcium 7.6 MG/DL (8.5-10.1); Osmolality,Calculated 284.3 MOS/KG (273-304); Total Protein 4.9 G/DL (6.4-8.3)
[2020-06-27] MEDS: NICOTINE 21 MG/24 HR PATCH TRANSDERM SCH (08:17)
[2020-06-27] MEDS: fentaNYL 25 MCG/HR PATCH TRANSDERM SCH (08:19)
[2020-06-27] MEDS: GENTAMICIN INJ 440 MG in SODIUM CHLORIDE 0.9% 100 ML IV SCH (10:10)
[2020-06-27] MEDS: MORPHINE 4 MG/1 ML VIAL IV PRN (10:56)
[2020-06-27] MEDS: FAMOTIDINE 20 MG/2 ML VIAL IV SCH (11:25)
[2020-06-27] MEDS: hydrALAZINE 20 MG/1 ML VIAL IV PRN (11:25)
[2020-06-27] MEDS ORDERED: ZIPRASIDONE 20 MG/1 ML VIAL IM PRN (16:17)
[2020-06-27] MEDS: ENOXAPARIN 80 MG/0.8 ML SYRINGE SUBCUT SCH (17:30)
[2020-06-28] MEDS: MORPHINE 4 MG/1 ML VIAL IV PRN (00:26)
[2020-06-28] MEDS: ALBUTEROL/IPRATROPIUM 3 ML NEB RESP TX SCH ×6 (00:45→19:26)
[2020-06-28] MEDS: methylPREDNISolone SOD SUC 40 MG/1 ML VIAL IV SCH ×3 (01:13→16:46)
[2020-06-28] MEDS: MEROPENEM 500 MG in SODIUM CHLORIDE 0.9% 100 ML IV SCH ×2 (01:15→07:58)
[2020-06-28] MEDS ORDERED: dilTIAZem Drip 125 MG/125 ML PREMIX IV SCH (03:00)
[2020-06-28 04:15] LABS: Basophils % 0.1 % (0.0-0.8); Hematocrit 27.6 VOL% (42.0-52.0); Hemoglobin 9.7 GM/DL (14.0-18.0); Immature Granulocytes % 0.8 %; Lymphocytes # 0.2 10*3/uL (1.4-4.0); Lymphocytes % 1.9 % (21.2-54.2); Mean Corpuscular HGB Conc 35.1 GM/DL (32-36); Mean Corpuscular Volume 90.8 FL (87-102); Mean Platelet Volume 11.6 FL (9.6-12.0); Monocytes % 3.4 % (1.7-12.7); Neutrophils % 93.8 % (38.7-73.9); Platelet Count 208 T/CUMM (130-400); Red Blood Count 3.04 MC/CUMM (3.8-5.5); Red Cell Distribution Width 14.6 % (9.3-17.3); White Blood Count 12.1 T/CUMM (4-12)
[2020-06-28 04:19] LABS: Allen Test Positive
[2020-06-28 04:20] LABS: ABG Base Excess 4.1 MMOL/L (-2.5-2.5); ABG HCO3 28.1 MMOL/L (20-26); ABG PCO2 33.9 MM HG (35-48); ABG PO2 68.2 MM HG (80-95); ABG TCO2 24.6 MMOL/L (23-27)
[2020-06-28 04:34] LABS: Band Neutrophils 1 % (0-10); Hypochromasia 1+; Lymphocytes 2 % (20-55); Microcytosis 1+; Platelet Estimate Adequate; Segmented Neutrophils 94 % (50-85); Total Cells Counted 100
[2020-06-28 04:37] LABS: Albumin 1.8 G/DL (3.4-5.0); Bilirubin,Total 1.2 MG/DL (0.2-1.0); Calcium 7.8 MG/DL (8.5-10.1); Osmolality,Calculated 286.1 MOS/KG (273-304); Total Protein 5.2 G/DL (6.4-8.3)
[2020-06-28] MEDS: INSULIN REGULAR 100 UNIT/ML SUBCUT SCH ×3 (06:15→17:56)
[2020-06-28] MEDS: ENOXAPARIN 80 MG/0.8 ML SYRINGE SUBCUT SCH ×2 (06:15→17:54)
[2020-06-28] MEDS: NICOTINE 21 MG/24 HR PATCH TRANSDERM SCH (08:54)
[2020-06-28] MEDS: DILTIAZEM CD 240 MG CAPSULE PO SCH (09:24)
[2020-06-28] MEDS: cefTRIAXone 1,000 MG in SYRINGE 1 EACH IV SCH (09:25)
[2020-06-28] MEDS ORDERED: ENOXAPARIN 40 MG/0.4 ML SYRINGE SUBCUT SCH (09:30)
[2020-06-28] MEDS: FAMOTIDINE 20 MG/2 ML VIAL IV SCH (11:50)
[2020-06-29] MEDS: ALBUTEROL/IPRATROPIUM 3 ML NEB RESP TX SCH ×6 (00:05→19:04)
[2020-06-29] MEDS: INSULIN REGULAR 100 UNIT/ML SUBCUT SCH ×3 (01:23→13:42)
[2020-06-29 05:39] LABS: Basophils % 0.1 % (0.0-0.8); Immature Granulocytes % 0.7 %; Immature Granulocytes Absolute 0.09 #; Lymphocytes # 0.4 10*3/uL (1.4-4.0); Lymphocytes % 3.2 % (21.2-54.2); Mean Corpuscular HGB Conc 34.5 GM/DL (32-36); Mean Corpuscular Volume 90.6 FL (87-102); Mean Platelet Volume 11.7 FL (9.6-12.0); Monocytes % 5.7 % (1.7-12.7); Neutrophils % 90.3 % (38.7-73.9); Platelet Count 239 T/CUMM (130-400); Red Cell Distribution Width 14.5 % (9.3-17.3)
[2020-06-29] MEDS: methylPREDNISolone SOD SUC 40 MG/1 ML VIAL IV SCH ×3 (05:46→20:50)
[2020-06-29] MEDS: ENOXAPARIN 80 MG/0.8 ML SYRINGE SUBCUT SCH ×2 (05:47→18:20)
[2020-06-29 06:01] LABS: Hypochromasia 1+; Lymphocytes 4 % (20-55); Microcytosis 1+; Platelet Estimate Adequate; Segmented Neutrophils 91 % (50-85); Total Cells Counted 100
[2020-06-29 06:03] LABS: Albumin 1.9 G/DL (3.4-5.0); Bilirubin,Total 1.2 MG/DL (0.2-1.0); Calcium 7.7 MG/DL (8.5-10.1); Total Protein 5.1 G/DL (6.4-8.3)
[2020-06-29] MEDS: NICOTINE 21 MG/24 HR PATCH TRANSDERM SCH (09:05)
[2020-06-29] MEDS: cefTRIAXone 1,000 MG in SYRINGE 1 EACH IV SCH (09:05)
[2020-06-29] MEDS: DILTIAZEM CD 240 MG CAPSULE PO SCH (09:07)
[2020-06-29] MEDS: FAMOTIDINE 20 MG/2 ML VIAL IV SCH (11:00)
[2020-06-29] MEDS ORDERED: GLUCAGON 1 MG VIAL IM PRN (13:52)
[2020-06-29] MEDS ORDERED: DEXTROSE 50% 25 GM/50 ML VIAL IV PRN (13:52)
[2020-06-29] MEDS: INSULIN LISPRO 100 UNIT/ML SUBCUT SCH (17:33)
[2020-06-29] MEDS: MORPHINE 4 MG/1 ML VIAL IV PRN (21:33)
[2020-06-30] MEDS: ALBUTEROL/IPRATROPIUM 3 ML NEB RESP TX SCH ×5 (00:02→14:08)
[2020-06-30] MEDS: INSULIN LISPRO 100 UNIT/ML SUBCUT SCH ×3 (01:02→12:13)
[2020-06-30] MEDS: ENOXAPARIN 80 MG/0.8 ML SYRINGE SUBCUT SCH (05:51)
[2020-06-30] MEDS: DILTIAZEM CD 240 MG CAPSULE PO SCH (09:17)
[2020-06-30] MEDS: NICOTINE 21 MG/24 HR PATCH TRANSDERM SCH (09:17)
[2020-06-30] MEDS: cefTRIAXone 1,000 MG in SYRINGE 1 EACH IV SCH (09:17)
[2020-06-30] MEDS: methylPREDNISolone SOD SUC 40 MG/1 ML VIAL IV SCH (09:17)
[2020-06-30] MEDS ORDERED: methylPREDNISolone SOD SUC 40 MG/1 ML VIAL IV ONE (11:27)
[2020-06-30 12:26] VITALS: BP 151/79
[2020-06-30] MEDS: FAMOTIDINE 20 MG/2 ML VIAL IV SCH (12:33)
[2020-06-30] MEDS ORDERED: DONEPEZIL 5 MG TABLET PO SCH (21:00)
== END 2020-06-30 15:51 | DRG 329 ==
LOC: N.ED 10:13 → N.EDINP 13:13 → N.3E 14:59 → N.ICU 06-17 10:25 → N.TELES 06-28 17:10
PROVIDERS: ADMIT Surgery; ATTEND Surgery